=== PATIENT | female | born 1990 | race Caucasian/White ===

== ENCOUNTER 2016-08-22 13:43 | Emergency (ER) | payer MEDICAID ==
[~2016-08-22] VITALS: Ht 170.2 cm; Wt 49.0 kg
[2016-08-22] MEDS ORDERED: PSEUDOEPHEDRINE HCL 30 MG TABLET ONE (14:51)
[2016-08-22] MEDS ORDERED: PSEUDOEPHEDRINE HCL 30 MG TABLET PO ONE (15:00)
[2016-08-22 15:34] VITALS: BP 130/80
== END 2016-08-22 15:35 | disposition home or self-care (01) ==
LOC: ER 13:46
DX: B34.9 Viral infection, unspecified (principal); N39.0 Urinary tract infection, site not specified; I34.1 Nonrheumatic mitral (valve) prolapse
CPT/HCPCS: 99283; A4606; Z7610

== ENCOUNTER 2016-11-17 19:34 | Emergency (ER) | payer BC, MEDICAID ==
[~2016-11-17] VITALS: Ht 170.2 cm; Wt 47.6 kg
--- NOTE | 2016-11-17 20:00 | NUR ---
26 YO FEMALE BB FAMILY. PT IS ALERT X 3, C/O ABD PAIN. PT AMBULATED TO ER BED WITH STEADY GAIT, SKIN WARM AND DRY, RR EVEN AND UNALABORED. AWAITING ORDERS FROM PROVIDER, WILL CONITNUE TO MONITOR
[2016-11-17] MEDS ORDERED: IV NS 0.9% 1,000 ML BAG IV ONE (20:30)
[2016-11-17] MEDS ORDERED: IV NS 0.9% 1,000 ML ONE (20:31)
[2016-11-17 20:36] LABS: APPEARANCE,URINE Clear (CLEAR); BILIRUBIN,URINE Negative (NEGATIVE); BLOOD, URINE Negative Ery/uL (NEGATIVE); COLOR,URINE Yellow (YELLOW); KETONES,URINE Negative (NEGATIVE); LEUKOCYTE ESTERASE ,URINE Trace (NEGATIVE); NITRITE, URINE Negative (NEGATIVE); PROTEIN,URINE Negative (NEGATIVE); UGLUCOSE Negative (NEGATIVE); UROBILINOGEN,URINE 0.2 EU/dL (0.2)
[2016-11-17 20:43] LABS: BASOPHILS % (AUTO) 0.6 % (0.0-2.0); EOSINOPHILS # (AUTO) 0.1 /CMM (0.0-0.7); EOSINOPHILS % (AUTO) 2.3 % (0.0-6.0); HEMATOCRIT 40 % (33-45); HEMOGLOBIN 13.3 g/dL (11.5-14.8); LYMPHOCYTES % (AUTO) 31.6 % (20.0-44.0); MEAN CORPUSCULAR HEMOGLOBIN 28 PG (26.0-33.0); MEAN CORPUSCULAR HGB CONC 34 g/dl (31.0-36.0); MEAN CORPUSCULAR VOLUME 82 fL (82-100); MONOCYTES # (AUTO) 0.5 /CMM (0.1-1.30); MONOCYTES % (AUTO) 7.5 % (2.0-12.0); NEUTROPHILS # (AUTO) 3.8 /CMM (1.8-8.9); PLATELET COUNT (AUTO) 244 /CMM (150-450); RDW COEFFICIENT OF VARIATION 12.9 (11.5-15.0); RED BLOOD CELL COUNT(AUTO) 4.79 MIL/uL (4.0-5.2); WHITE BLOOD COUNT (AUTO) 6.4 K/uL (4.3-11.0)
--- NOTE | 2016-11-17 20:43 | NUR ---
20G LEFT AC IV STARTED; MEDICATED PT ORDERED
[2016-11-17 20:50] LABS: CALCIUM, SERUM 8.8 mg/dL (8.5-10.1); CREATININE 0.9 mg/dL (0.6-1.3); POTASSIUM 3.7 mmol/L (3.5-5.1)
[2016-11-17 20:50] LABS: ADD URINE CULTURE NO; BACTERIA,URINE Few /HPF (None Seen); RBC,URINE NONE SEEN /HPF (0-2); SQUAMOUS EPITHELIAL CELL,UR Few /HPF (None Seen); WBC,URINE 0-2 /HPF (0-3)
[2016-11-17 20:55] LABS: ALBUMIN 3.8 g/dL (3.4-5.0); BILIRUBIN,DIRECT 0.1 mg/dL (0.0-0.2); BILIRUBIN,TOTAL 0.2 mg/dL (0.2-1.0); TOTAL PROTEIN, SERUM 7.1 g/dL (6.4-8.2)
[2016-11-17] MEDS ORDERED: IOHEXOL-300 100 ML VIAL IV ONE (20:59)
[2016-11-17] MEDS ORDERED: CT SWABBABLE VALVE TRANS SET 1 EA INFUS.SET MC ONE (20:59)
[2016-11-17] MEDS ORDERED: IV NS 0.9% 250 ML IV ONE (20:59)
[2016-11-17] MEDS ORDERED: ONDANSETRON HCL/PF 4 MG/2 ML VIAL ONE ×2 (21:37→23:09)
[2016-11-17] MEDS ORDERED: MORPHINE SULFATE INJ 4 MG/ML DISP.SYRIN ONE ×2 (21:37→23:09)
[2016-11-17] MEDS ORDERED: ONDANSETRON HCL/PF 4 MG/2 ML VIAL IV ONE ×2 (22:00→23:30)
[2016-11-17] MEDS ORDERED: MORPHINE SULFATE INJ 2 MG/ML DISP.SYRIN IV ONE ×2 (22:00→23:30)
--- NOTE | 2016-11-17 22:19 | NUR ---
PT TRANSPORTED TO CT [facility]IA [facility]
[2016-11-18 00:03] VITALS: BP 126/82
--- NOTE | 2016-11-18 00:03 | NUR ---
Patient discharged to home in stable condition. Written and verbal after care instructions given. Patient verbalizes understanding of instruction. PT ambulatory with a steady gait VITAL SIGNS WITHIN NORMAL LIMITS.IV removed. Catheter intact and site benign. Pressure and 4x4 applied to site. No bleeding noted.
== END 2016-11-18 00:04 | disposition home or self-care (01) ==
LOC: ER 19:38
DX: N83.209 Unspecified ovarian cyst, unspecified side (principal); N94.89 Other specified conditions associated with female genital organs and menstrual cycle; I34.1 Nonrheumatic mitral (valve) prolapse
CPT/HCPCS: 36415; 76856-TC; 80048-TC; 80076-TC; 81000-TC; 83690-TC; 84703-TC; 85025-TC; A4606; J2270; J2405; J7030; J7050; Q9967; Z7610